=== PATIENT | male | born 1980 | race Hispanic/Latino ===

== ENCOUNTER 2018-05-03 10:56 | Emergency (ER) | payer BC ==
--- NOTE | 2018-05-03 11:17 | ER ---
Nurse's Notes [facility] Name: Alexander Box Age: 37 yrs Sex: Male : 1980 Arrival Date: 05/03/2018 Time: 10:59 Bed 19 Private MD: Diagnosis: Otitis media, unspecified, right ear;Acute upper respiratory infection, unspecified Presentation: 05/03 11:00 Presenting complaint: Productive cough, pain with cough, and headache x 3 days. hb Transition of care: patient was not received from another setting of care. Onset of symptoms was May 01, 2018. Risk Assessment: Do you want to hurt yourself or someone else? Patient reports no desire to harm self or others. Care prior to arrival: None. 11:00 Method Of Arrival: Ambulatory hb 11:00 Acuity: AMNA 4 hb 11:07 Initial Sepsis Screen: Does the patient meet any 2 criteria? No. Patient's initial tw2 sepsis screen is negative. Does the patient have a suspected source of infection? No. Patient's initial sepsis screen is negative. Historical: - Allergies: 11:02 No Known Allergies; hb - Home Meds: 11:02 None [Active]; hb - PMHx: 11:02 None; hb - PSHx: 11:02 None; hb - Immunization history:: Adult Immunizations up to date. - Social history:: Smoking status: Patient uses tobacco products, smokes one-half pack cigarettes per day. - Ebola Screening: : No symptoms or risks identified at this time. Screenin:02 Abuse screen: Denies threats or abuse. Denies injuries from another. Nutritional hb screening: No deficits noted. Tuberculosis screening: No symptoms or risk factors identified. Fall Risk None identified. Assessment: 11:07 General: Appears in no apparent distress. Behavior is calm, cooperative, appropriate tw2 for age. Pain: Denies pain. Neuro: Level of Consciousness is awake, alert, obeys commands, Oriented to person, place, time, situation. Cardiovascular: Patient's skin is warm and dry. Respiratory: Reports cough that is Airway is patent Respiratory effort is even, unlabored, Respiratory pattern is regular, symmetrical, Breath sounds are clear bilaterally. GI: No signs and/or symptoms were reported involving the gastrointestinal system. : No signs and/or symptoms were reported regarding the genitourinary system. EENT: Reports nasal congestion nasal discharge. Derm: No signs and/or symptoms reported regarding the dermatologic system. Musculoskeletal: Range of motion: intact in all extremities. 11:21 Reassessment: Patient appears in no apparent distress at this time. No changes from tw2 previously documented assessment. Patient and/or family updated on plan of care and expected duration. Pain level reassessed. Patient is alert, oriented x 3, equal unlabored respirations, skin warm/dry/pink. Vital Signs: 11:01 BP 147 / 98; Pulse 67; Resp 16; Temp 98.2; Pulse Ox 100% on R/A; Pain 0/10; hb ED Course: 10:59 Patient arrived in ED. as 11:01 Triage completed. hb 11:02 Arm band placed on left wrist. hb 11:02 Bed in low position. Call light in reach. Pulse ox on. NIBP on. tw2 11:03 Damaso Schneider PA is PHCP. cp 11:03 Devin Iraheta MD is Attending Physician. cp 11:07 Zoila Roa, RN is Primary Nurse. tw2 11:20 No provider procedures requiring assistance completed. Patient did not have IV access tw2 during this emergency room visit. Administered Medications: No medications were administered Outcome: 11:16 Discharge ordered by MD. cp 11:20 Discharged to home ambulatory. tw2 11:20 Condition: stable 11:20 Discharge instructions given to patient, Instructed on discharge instructions, follow up and referral plans. medication usage, Demonstrated understanding of instructions, follow-up care, medications, Prescriptions given X 3. 11:21 Patient left the ED. tw2 Signatures: Jessi Gan as Damaso Schneider PA PA cp Baxter, Heather, RN RN Zoila Roa RN RN tw2
--- NOTE | 2018-05-03 11:17 | EDPHYS ---
Physician Documentation [facility] Name: Alexander Box Age: 37 yrs Sex: Male : 1980 Arrival Date: 05/03/2018 Time: 10:59 Bed 19 Private MD: ED Physician Devin Iraheta HPI: 05/03 11:12 This 37 yrs old Male presents to ER via Ambulatory with complaints of cp Congestion. 11:12 The patient or guardian reports cough, that is intermittent. Associated signs and cp symptoms: Pertinent positives: earache, sore throat, nasal and chest congestion. 11:12 Onset: The symptoms/episode began/occurred 3 day(s) ago. Severity of symptoms: in the cp emergency department the symptoms are unchanged despite home interventions. Historical: - Allergies: 11:02 No Known Allergies; hb - Home Meds: 11:02 None [Active]; hb - PMHx: 11:02 None; hb - PSHx: 11:02 None; hb - Immunization history:: Adult Immunizations up to date. - Social history:: Smoking status: Patient uses tobacco products, smokes one-half pack cigarettes per day. - Ebola Screening: : No symptoms or risks identified at this time. ROS: 11:13 Eyes: Negative for injury, pain, redness, and discharge. cp 11:13 Constitutional: Negative for body aches, fever, poor PO intake. 11:13 ENT: Positive for ear pain, sore throat, Negative for drainage from ear(s). 11:13 Neck: Negative for pain with movement, pain at rest, stiffness. 11:13 Respiratory: Positive for cough, "sounds productive", Negative for wheezing. 11:13 Abdomen/GI: Negative for vomiting, diarrhea, constipation. 11:13 Neuro: Positive for headache, Negative for altered mental status, weakness. 11:13 All other systems are negative. Exam: 11:14 Head/Face: Normocephalic, atraumatic. cp 11:14 Constitutional: The patient appears in no acute distress, alert, awake, non-toxic, well developed, well nourished, obese. 11:14 Eyes: Periorbital structures: appear normal, Conjunctiva: normal, no exudate, no injection, Lids and lashes: appear normal, bilaterally. 11:14 ENT: External ear(s): are unremarkable, Ear canal(s): are normal, clear, TM's: bulging, on the right, erythema, that is moderate, bilaterally, Nose: is normal, Mouth: Lips: moist, Oral mucosa: pink and intact, moist, Posterior pharynx: Airway: no evidence of obstruction, patent, Tonsils: no enlargement, no exudate, erythema, that is mild, exudate, is not appreciated. 11:14 Neck: ROM/movement: is normal, is supple, without pain, no range of motions limitations, no meningismus, no nuchal rigidity. 11:14 Chest/axilla: Inspection: normal, Palpation: is normal, no crepitus, no tenderness. 11:14 Cardiovascular: Rate: normal, Rhythm: regular. 11:14 Respiratory: the patient does not display signs of respiratory distress, Respirations: normal, no use of accessory muscles, no retractions, no splinting, no tachypnea, labored breathing, is not present, Breath sounds: decreased breath sounds, are not appreciated, stridor, is not appreciated, + upper airway congestion. wheezing: is not appreciated. 11:14 Abdomen/GI: Inspection: abdomen appears normal. cp Vital Signs: 11:01 BP 147 / 98; Pulse 67; Resp 16; Temp 98.2; Pulse Ox 100% on R/A; Pain 0/10; hb MDM: 11:03 Patient medically screened. cp 11:10 Differential diagnosis: bronchitis, flu, URI. cp 11:15 Data reviewed: vital signs, nurses notes, and as a result, I will discharge patient. cp 11:15 Counseling: I had a detailed discussion with the patient and/or guardian regarding: the cp historical points, exam findings, and any diagnostic results supporting the discharge/admit diagnosis, to return to the emergency department if symptoms worsen or persist or if there are any questions or concerns that arise at home. Administered Medications: No medications were administered Disposition: 14:47 Co-signature as Attending Physician, Devin Iraheta MD. rn Disposition: 05/03/18 11:16 Discharged to Home. Impression: Otitis media, unspecified, right ear, Acute upper respiratory infection, unspecified. - Condition is Stable. - Discharge Instructions: Otitis Media, Adult, Upper Respiratory Infection, Adult, Cool Mist Vaporizer. - Prescriptions for Amoxicillin 875 mg Oral Tablet - take 1 tablet by ORAL route every 12 hours for 10 days; 20 tablet. Ibuprofen 800 mg Oral Tablet - take 1 tablet by ORAL route every 8 hours As needed take with food; 30 tablet. Tessalon Perles 100 mg Oral Capsule - take 2 capsule by ORAL route every 8 hours As needed; 30 capsule. - Medication Reconciliation Form, Thank You Letter, Antibiotic Education, Prescription Opioid Use, Work release form form. - Follow up: Private Physician; When: 2 - 3 days; Reason: Worsening of condition. - Problem is new. - Symptoms are unchanged. Signatures: Devin Iraheta MD MD rn Damaso Schneider PA PA cp Christine Maldonado RN RN Zoila Roa RN RN tw2 Corrections: (The following items were deleted from the chart) 11:21 11:16 05/03/2018 11:16 Discharged to Home. Impression: Otitis media, unspecified, right tw2 ear; Acute upper respiratory infection, unspecified. Condition is Stable. Forms are Work release form, Medication Reconciliation Form, Thank You Letter, Antibiotic Education, Prescription Opioid Use. Follow up: Private Physician; When: 2 - 3 days; Reason: Worsening of condition. Problem is new. Symptoms are unchanged. cp
== END 2018-05-03 11:21 | disposition home or self-care (01) ==
LOC: ER 10:56
DX: H66.91 Otitis media, unspecified, right ear (principal); J06.9 Acute upper respiratory infection, unspecified; F17.210 Nicotine dependence, cigarettes, uncomplicated
CPT/HCPCS: 99283

== ENCOUNTER 2018-12-29 06:51 | Day surgery (SDC) | payer BC ==
--- NOTE | 2018-12-27 11:26 | RAD REPORT ---
EXAM DESCRIPTION: RAD - Chest Pa And Lat (2 Views) - 12/27/2018 11:05 am CLINICAL HISTORY: preop, pending cholecystectomy COMPARISON: April 2008 TECHNIQUE: PA and lateral views of the chest were obtained. FINDINGS: The lungs are clear. Heart size is normal and central vasculature is within normal limit s. No pleural effusion or pneumothorax seen. No acute bony finding noted. No aortic abnormality. IMPRESSION: No acute cardiopulmonary process.
--- NOTE | 2018-12-27 12:19 | EKG ---
Test Date: 2018-12-27 Test Time: 11:52:44 Documentum Consultant: STELLA MEASUREMENT RESULTS: Intervals: Rate: 70 ME: 148 QRSD: 70 QT: 398 QTc: 429 Orcas: P: 36 ME: 148 QRS: -7 T: 20 INTERPRETIVE STATEMENTS: Normal sinus rhythm Nonspecific T wave abnormality Abnormal ECG Compared to ECG 04/30/2008 13:41:32 No significant changes Electronically Signed On 12-27-18 12:19:05 HOME CARE ADMINISTRATOR by Ricki Louis
[2018-12-27 13:28] LABS: Absolute Lymphocytes (CBC) 2.7 K/uL (0.7-4.9); Hematocrit 47.5 % (39.6-49.0); Lymphocytes % 36.4 % (15.3-44.8); MPV 8.5 fL (7.6-11.3); RBC Red Blood Cell Count 5.75 M/uL (4.33-5.43)
[2018-12-29] MEDS ORDERED: PROPOFOL 200 MG/20 ML VIAL IV ONE ×2 (06:57→08:07)
[2018-12-29] MEDS ORDERED: ROCURONIUM 50 MG/5 ML VIAL IV ONE (06:58)
[2018-12-29] MEDS ORDERED: LIDOCAINE 2% MPF 5 ML VIAL ONE (06:58)
[2018-12-29] MEDS ORDERED: ONDANSETRON 4 MG/2 ML VIAL ONE (06:58)
[2018-12-29] MEDS ORDERED: FENTANYL CITR 250 MCG/5 ML ONE (06:59)
[2018-12-29] MEDS ORDERED: NEOSTIGMINE 1 MG/ML -5 ML ONE (06:59)
[2018-12-29] MEDS ORDERED: MIDAZOLAM HCL 2 MG/2 ML INJ ONE (06:59)
[2018-12-29] MEDS ORDERED: GLYCOPYRROLATE 0.2 MG/ML SYR ONE (07:00)
[2018-12-29] MEDS ORDERED: SUCCINYLCHOLINE 20 MG/ML (10 ML) IV ONE (07:14)
[2018-12-29] MEDS ORDERED: EPHEDRINE SULF 50 MG/ML VIAL ONE (08:35)
[2018-12-29] MEDS ORDERED: Mastisol Adhesive Liq ONE (08:58)
[2018-12-29] MEDS ORDERED: Ringers Lactate 1,000 ML IV ONE (09:06)
[2018-12-29] MEDS ORDERED: HYDROMORPHONE HCL 1 MG/ML INJ ONE (09:40)
[2018-12-29 10:02] VITALS: TEMP 97.4
[2018-12-29 10:59] VITALS: BP 128/72; O2SAT 96
--- NOTE | 2018-12-29 11:42 | OP ---
Date of Procedure: 12/29/2018 Surgeon: Isaias Malloy MD Preoperative Diagnoses: Chronic cholecystitis and biliary dyskinesia Postoperative Diagnoses: Chronic cholecystitis and biliary dyskinesia with adhesions. Procedure Performed: Laparoscopic cholecystectomy, lysis of adhesions. Estimated Blood Loss: Minimal. Specimen: Gallbladder. Findings: As above. Anesthesia: General. Complications: None. Disposition: Patient tolerated the procedure in stable condition, taken to Recovery in good general condition. Procedure In Detail: Patient was brought to the OR and placed in supine position. General anesthesi a was begun. Patient was prepped and draped in usual sterile fashion. Marcaine 0.5% was infiltrated locally. A 15 blade was used to make a 1 cm supraumbilical midline incision. Subcutaneous tissue d ivided. The fascia was identified and divided. A #1 Vicryl, stay suture was placed. Peritoneal cav ity was entered with sharp and blunt dissection. 12-mm trocar placed into the peritoneal cavity unde r direct vision. Pneumoperitoneum was established. Then, three 5 mm trocars placed, 1 in the epigas trium just to the right of midline and 2 in the right subcostal region. Laparoscopy revealed extensi ve adhesions, omental adhesions to the gallbladder, fundus and body, which were taken and infundibulu m was taken down with sharp and blunt dissection. Bleeding controlled with cautery. Approximately 1 5 minute time was required for dissection of the adhesions and then fundus was retracted superiorly. Infundibulum was identified and retracted inferolaterally. Cystic duct and cystic artery were clear ly identified with blunt dissection. Clips placed. Both structures divided. Cautery was used to re move the gallbladder from the liver bed. Bleeding on the liver bed was controlled with cautery. The gallbladder was retrieved through the umbilicus via an EndoCatch bag. Right upper quadrant examined , no evidence of bleeding or bowel injury, or bile leakage appreciated. Subsequently, all trocars we re removed under direct vision. Stay sutures were tied to each other to reapproximate the fascial de fect. Subcutaneous wounds irrigated. Bleeding controlled with cautery. A 3-0 chromic used to appro ximate the subcutaneous tissue and close the skin. Sterile dressing was applied. The patient was aw akened and taken to Recovery in good general condition. Discharge Note: Patient will go to day surgery and home when stable. Disposition: Home. Condition: Stable. Discharge Instructions: Resume home medications and diet. Activity as tolerated. No heavy lifting. Remove outer dressing in 2 days. Shower. Keep wound clean and dry. Keep Steri-Strips on at all t imes. Incentive spirometry was ordered. Tylenol No. 3 one tablet p.o. q.4 p.r.n. pain. Follow up i n my office in 1 week. Call for appointment. YVONNE/FRANK Voice ID: [id number] Report ID: [id number]
== END 2018-12-29 11:20 | disposition home or self-care (01) ==
LOC: PRE 06:51
PROVIDERS: ATTEND Surgery
PROC: 0DNU4ZZ Release Omentum, Percutaneous Endoscopic Approach (ICD-10-PCS; 2018-12-29)
PROC: 0FT44ZZ Resection of Gallbladder, Percutaneous Endoscopic Approach (ICD-10-PCS; principal; 2018-12-29 08:15)
DX: K81.1 Chronic cholecystitis (principal); K82.8 Other specified diseases of gallbladder; K66.0 Peritoneal adhesions (postprocedural) (postinfection); E66.01 Morbid (severe) obesity due to excess calories; Z68.42 Body mass index [BMI] 45.0-49.9, adult; F17.200 Nicotine dependence, unspecified, uncomplicated
CPT/HCPCS: 93005; 85025; 80048; 36415; 71046; 47562; 49329; J2704 ×2; J0330; J2250; J3010; J1170; J2710; J7120; J2405

== ENCOUNTER 2024-06-27 14:02 | Emergency (ER) | payer BC, SELFPAY ==
--- OUTSIDE RECORDS SUMMARY | 2024-06-27 14:07 | XMS REPORT | Continuity of Care Document ---
Author Name Unknown Address [address] [facility] [place] [address] [facility] Address [address] [facility] [place] [address] Care Team Providers Care Low Voltage Electrician Name Role Phone ELVIN LEVIN Primary Care Physician Unavailab ELIU De Oliveira Attending Clinician Unavailable ELIU LEMUS Attending Clinician Unavailable PADMAJA RUTHERFORD Attending Clinician Un available Clary Miles DO Attending Clinician [phone] CLARY MILES Attending Clinician Unavailab Clary King DO Attending Clinician [phone] IHSAN MATA Attending Clinician Unavailable Gavin Choudhury Attending Clinician [phone] Ihsan Mata DO Attending Clinician [phone] Hiwot Montiel MD Attending Clinician [phone] YOANDY BRENNAN M.D. Attending Clinician Unavaila ELIU Howard Admitting Clinician Unavailable IHSAN MATA Admitting Clinician Unavailable Ihsan Mata DO Admitting Clinician [phone] Problems Condition Name Condition Details Condition Category Status Onset Date Resolution Date Last Treatment Date Treating Clinician Comments Source Epigastric pain Epigastric pain Disease Active 10-02 00:00: 00 [facility] Chronic gastrointe stinal bleeding Chronic gastrointe stinal bleeding Disease Active 10-01 00:00: 00 [facility] Obesity (BMI 30-39.9) Obesity (BMI 30-39.9) Disease Active 10-01 00:00: 00 [facility] Anemia, unspecifie d type Anemia, unspecifie d type Disease Active 10-01 00:00: 00 Overview: Formattin g of this note might be different from the original. Added automatic ally from request for surgery [id number] [facility] Obesity Obesity Disease Active 05-22 00:00: 00 [facility] Esophageal reflux Esophageal reflux Disease Active 05-22 00:00: 00 [facility] Hypothyroi dism Hypothyroi dism Disease Active 05-22 00:00: 00 [facility] Abdominal pain, epigastric Abdominal pain, epigastric Disease Active 05-22 00:00: 00 [facility] Diarrhea Diarrhea Disease Active 05-22 00:00: 00 [facility] Elevated liver enzymes Elevated liver enzymes Disease Active 05-22 00:00: 00 [facility] Rectal bleeding Rectal bleeding Disease Active 05-22 00:00: 00 [facility] Neck pain [facility] pain Problem [facility] Injury to ligament of cervical spine Injury to ligament of cervical spine Problem Active [facility] Allergies, Adverse Reactions, Alerts Allergy Name Allergy Type Status Severity Reaction(s) Onset Date Inactive Date Treating Clinician Comments Source NO KNOWN ALLERGIE S Drug Class Active [facility] Social History Social Habit Start Date Stop Date Quantity Comments Source History of tobacco use Cigarette Smoker [facility] intake 2024-04-10 00:00:00 2024-04-10 00:00:00 Ex-drinker (finding) [facility] Exposure to SARS-CoV-2 (event) 2021-10-06 00:00:00 2021-10-16 13:55:00 Not sure [facility] Alcohol intake 2021-10-16 00:00:00 2021-10-16 00:00:00 Ex-drinker (finding) [facility] History of Social function 2021-10-03 00:00:00 2021-10-03 00:00:00 [facility] Cigarettes smoked current (pack per day) - Reported 2021-10-01 00:00:00 2021-10-01 00:00:00 [facility] Cigarette pack-years 2021-10-01 00:00:00 2021-10-01 00:00:00 [facility] Sex assigned at 1980 00:00:00 1980 00:00:00 [facility] Smoking Status Start Date Stop Date Source Smokes tobacco daily 2021-10-01 00:00:00 [facility] Medications Ordered Medication Name Filled Medication Name Start Date Stop Date Current Medication? Ordering Clinician Indication Dosage Frequency Signature (SIG) Comments Components Source Lidocaine (LIDOCARE) 4 % patch 1 Patch 04-10 11:00: 00 04-10 22:59 :00 Yes 1{patch } 1 Patch, Topical, Administer over 12 Hours, ONCE, 1 dose, On Wed04/10/24 at 0500, Routine [facility] fentanyl PF (SUBLIMAZE (PF)) injection 50 mcg 04-10 10:15: 00 04-10 10:41 :00 No 50ug 50 mcg, Intramuscu lar, ONCE, 1 dose, On Wed04/10/24 at 0415, Routine [facility] diazePAM (VALIUM) tablet 5 mg 04-10 10:15: 00 04-10 10:42 :00 No 5mg 5 mg, Oral, ONCE, 1 dose, On Wed04/10/24 at 0415, KO [facility] ibuprofen (IBU) tablet 600 mg 04-10 10:15: 00 04-10 10:41 :00 No 600mg 600 mg, Oral, ONCE, 1 dose, On Wed04/10/24 at 0415, KO [facility] dexamethaso ne sod phos PF injection 10 mg 04-10 10:15: 00 04-10 10:41 :00 No 10mg 10 mg, Oral, ONCE, 1 dose, On Wed04/10/24 at 0415, 1 mL [facility] methocarbam oL 750 mg tablet 04-10 00:00: 00 Yes [id number] 750mg Take 1 tablet by mouth every 6 (six) hours as needed for Pain (scale 1-3). [facility] omeprazole (PRILOSEC) 20 mg capsule 10-07 14:37: 03 Yes 40mg Take 40 mg by mouth daily. [facility] docusate (COLACE) 100 mg capsule 10-07 14:37: 03 Yes 100mg Take 100 mg by mouth 2 (two) times daily. [facility] iron sucrose (VENOFER) 300 mg in NaCl 0.9% (NS) 250 mL infusion 10-03 23:00: 00 10-04 01:06 :33 No 300mg 300 mg, IV Infusion, ONCE, Administer over 2.5 Hours, On Wed10/03/21 at 1800, For 1 dose [facility] dicyclomine (BENTYL) capsule 10 mg 10-03 17:00: 00 10-04 06:15 :53 No 10mg 10 mg, Oral, QID, First dose on Wed10/03/21 at 1200, Until Discontinu ed, Routine [facility] pantoprazol e (PROTONIX) injection 40 mg 10-03 01:00: 00 10-04 06:15 :53 No 40mg 40 mg, Slow IV Push, Q12H, First dose on Beata 10/02/21 at 2000, Until Discontinu ed [facility] peg-electro lyte soln (GOLYTELY) 236-22.74-6 .74 -5.86 gram solution 4,000 mL 10-02 21:47: 47 10-04 06:15 :53 No 4000mL 4,000 mL, Oral, PRN - SEE INSTRUCTIO NS, Starting on Wed10/02/21 at 1647, Until 10/04/21 at 0115, Routine, Bowel Prep, colonoscop y [facility] ondansetron (ZOFRAN (PF)) injection 4 mg 10-02 21:47: 47 10-04 06:15 :53 No 4mg 4 mg, Slow IV Push, Q6HPRN, Starting on Wed10/02/21 at 1647, Until 10/04/21 at 0115, Routine, Nausea and Vomiting (N/V) [facility] bisacodyL (DULCOLAX) tablet 10 mg 10-02 21:47: 47 10-03 07:50 :00 No 10mg 10 mg, Oral, PRE-PROCED URE ONCE, 1 dose, Starting on Wed10/02/21 at 1647, Until Discontinu ed, Routine, Bowel Prep, Colonoscop y [facility] iron sucrose (VENOFER) 300 mg in NaCl 0.9% (NS) 250 mL infusion 10-02 19:00: 00 10-02 21:27 :00 No 300mg 300 mg, IV Infusion, ONCE, Administer over 2.5 Hours, On Wed10/02/21 at 1400, For 1 dose [facility] simethicone (GAS RELIEF (SIMETHICON E)) chewable tablet 80 mg 10-02 14:15: 00 10-03 19:27 :11 No 80mg 80 mg, Oral, PC+HS, First dose on Wed10/02/21 at 0915, Until Discontinu ed, Routine [facility] HYDROcodone -acetaminop hen (NORCO) 10-325 mg tablet 1 tablet 10-02 13:59: 50 10-04 06:15 :53 No 1{tbl} 1 tablet, Oral, Q6HPRN, Starting on 10/02/22 at 0859, Until 10/04/21 at 0115, Routine, Pain (scale 7-10) [facility] acetaminoph en (TYLENOL) tablet 650 mg 10-02 03:01: 00 10-04 06:15 :53 No 650mg 650 mg, Oral, Q6HPRN, Starting on Wed10/01/21 at 2201, Until 10/04/21 at 0115, Routine, Pain (scale 1-3) [facility] pantoprazol e (PROTONIX) 80 mg in NaCl 0.9% (NS) 500 mL infusion 10-02 02:30: 00 10-02 22:31 :38 No 8mg/h 8 mg/hr (50 mL/hr), IV Infusion, CONTINUOUS , Starting on Wed10/01/21 at 2130 [facility] iopamidol (ISOVUE 370-500 mL) injection 100 mL 10-02 02:15: 00 10-02 02:15 :00 No [id number] 100mL 100 mL, Intravenou s, ONCE, 1 dose, On Wed10/01/21 at 2115, Routine [facility] NaCl 0.9% (NS) bolus infusion 1,000 mL 10-02 00:45: 00 10-02 01:46 :00 No 1000mL at 999 mL/hr, 1,000 mL, IV Infusion, ONCE, 1 dose, On Wed10/01/21 at 1945, KO [facility] maalox:diph enhydrAMINE :lidocaine 2 % viscous 1:1:1 (FIRST-MOUT HWASH BLM) oral suspension 15 mL 10-01 23:45: 00 10-02 00:24 :00 No 15mL 15 mL, Oral, ONCE, 1 dose, On Wed10/01/21 at 1845, Routine [facility] No known medications 10-01 22:52: 11 No No known medication s [facility] HYDROcodone -Acetaminop hen 5-325 MG Oral Tablet HYDROcodone -Acetaminop hen 5-325 MG Oral Tablet 08-29 00:00: 00 Yes YOANDY BRENNAN M.D. 1 TAKE 1 TABLET EVERY 6 HOURS NEEDED FOR PAIN. [facility] HYDROcodone -Acetaminop hen 5-325 MG Oral Tablet HYDROcodone -Acetaminop hen 5-325 MG Oral Tablet 08-22 00:00: 00 Yes YOANDY BRENNAN M.D. 1 TAKE 1 TABLET EVERY 6 HOURS NEEDED FOR PAIN. [facility] Vital Signs Vital Name Observation Time Observation Value Comments S shabbir Systolic blood pressure 2024-04-10 11:04:32 133 mm[Hg] [facility] Diastolic blood pressure 2024-04-10 11:04:32 76 mm[Hg] [facility] Heart rate 2024-04-10 11:04:32 64 /min [facility] Body temperature 2024-04-10 11:04:32 36.61 Esme [facility] Respiratory rate 2024-04-10 11:04:32 15 /min [facility] Oxygen saturation in Arterial blood by Pulse oximetry 2024-04-10 11:04:32 98 /min [facility] Body height 2024-04-10 09:57:00 182.9 cm [facility] Body weight 2024-04-10 09:57:00 108.863 kg [facility] BMI 2024-04-10 09:57:00 32.55 kg/m2 [facility] Systolic blood pressure 2021-10-16 21:00:00 134 mm[Hg] [facility] Diastolic blood pressure 2021-10-16 21:00:00 73 mm[Hg] [facility] Heart rate 2021-10-16 21:00:00 66 /min [facility] Respiratory rate 2021-10-16 21:00:00 20 /min [facility] Oxygen saturation in Arterial blood by Pulse oximetry 2021-10-16 21:00:00 97 /min [facility] Body temperature 2021-10-16 18:51:00 37.5 Esme [facility] Body height 2021-10-16 18:51:00 182.9 cm [facility] Body weight 2021-10-16 18:51:00 127.914 kg [facility] BMI 2021-10-16 18:51:00 38.25 kg/m2 [facility] Systolic blood pressure 2021-10-03 21:32:00 151 mm[Hg] [facility] Diastolic blood pressure 2021-10-03 21:32:00 76 mm[Hg] [facility] Heart rate 2021-10-03 21:32:00 58 /min [facility] Body temperature 2021-10-03 21:32:00 36.78 Esme [facility] Respiratory rate 2021-10-03 21:32:00 18 /min [facility] Oxygen saturation in Arterial blood by Pulse oximetry 2021-10-03 21:32:00 99 /min [facility] Body height 2021-10-02 04:20:00 182.9 cm [facility] Body weight 2021-10-02 04:20:00 127.914 kg [facility] BMI 2021-10-02 04:20:00 38.25 kg/m2 [facility] Systolic blood pressure 2021-10-03 16:59:00 142 mm[Hg] [facility] Diastolic blood pressure 2021-10-03 16:59:00 79 mm[Hg] [facility] Heart rate 2021-10-03 16:59:00 63 /min [facility] Respiratory rate 2021-10-03 16:59:00 19 /min [facility] Oxygen saturation in Arterial blood by Pulse oximetry 2021-10-03 16:59:00 98 /min [facility] Body temperature 2021-10-03 16:25:00 36.56 Esme [facility] Body height 2021-10-02 04:20:00 182.9 cm [facility] Body weight 2021-10-02 04:20:00 127.914 kg [facility] BMI 2021-10-02 04:20:00 38.25 kg/m2 [facility] Procedures Procedure Date / Time Performed Performing Clinician Source XR LUMBAR SPINE 3 2024-04-10 10:37:14 Clary Miles [facility] XR SPINE THORACIC 2 2024-04-10 10:37:14 Clary Miles [facility] XR CERVICAL SPINE 3 2024-04-10 10:37:14 Clary Miles [facility] HB ABO GROUPING 2021-10-16 20:00:00 Clary Miles [facility] COMP. METABOLIC PANEL ([id number]) 2021-10-16 19:57:00 Clary Miles [facility] CBC WITH DIFF 2021-10-16 19:57:00 Clary Miles [facility] COVID-19 (ID NOW RAPID TESTING) 19:57:00 Clary Miles [facility] NOTICE OF PRIVACY PRACTICES 2021-10-16 18:33:28 Doctor Unassigned, [employer] [facility] CONSENT/REFUSAL FOR DIAGNOSI S AND TREATMENT 2021-10-16 18:33:00 Doctor Unassigned, [facility] [facility] COLONOSCOPY (ENDO) 2021-10-03 19:18:05 Elvin Levin [facility] COLONOSCOPY (ENDO) 2021-10-03 19:18:05 Elvin Levin [facility] EGD (ENDO) 2021-10-03 19:13:30 Elvin Levin [facility] EGD (ENDO) 2021-10-03 19:13:30 Elvin Levin [facility] ESOPHAGOGASTRODUODENOSCOPY 2021-10-03 19:11:00 Dinesh Hiwot [facility] COLONOSCOPY 2021-10-03 19:11:00 Dinesh Hiwot [facility] CBC WITHOUT DIFF 2021-10-03 09:37:00 Humberto Oropeza [facility] EXTRA TUBE LT. GREEN 2021-10-03 09:37:00 Ihsan Mata [facility] CBC WITHOUT DIFF 2021-10-03 09:37:00 Humberto Oropeza [facility] EXTRA TUBE LT. GREEN 2021-10-03 09:37:00 Ihsan Mata [facility] CBC WITH DIFF 2021-10-03 02:15:00 [facility] CBC WITH DIFF 2021-10-03 02:15:00 Nash Schultz [facility] CBC WITH DIFF 2021-10-02 18:56:00 [facility] CBC WITH DIFF 2021-10-02 18:56:00 Nash Schultz [facility] PREPARE PACKED RBC 2021-10-02 14:12[facility] 2021-10-02 14:12:57 Humberto Oropeza [facility] LACTATE DEHYDROGENASE 2021-10-02 13:33:00 Humberto Oropeza [facility] LACTATE DEHYDROGENASE 2021-10-02 13:33:00 Humberto Oropeza [facility] PHOSPHORUS 2021-10-02 11:13:00 [facility] MAGNESIUM 2021-10-02 11:13:00 [facility] BASIC METABOLIC PANEL (NA, K , CL, CO2, GLUCOSE, BUN, CREATININE, CA) 2021-10-02 11:13:00 [facility] DIFF CONSULT INTERPRETATION 2021-10-02 11:13:00 Humberto Oropeza [facility] CBC WITH DIFF 2021-10-02 11:13:00 [facility] RETICULOCYTES AUTOMATED 2021-10-02 11:13:00 Humberto Oropeza [facility] PHOSPHORUS 2021-10-02 11:13:00 Nash Schultz [facility] MAGNESIUM 2021-10-02 11:13:00 [facility] BASIC METABOLIC PANEL (NA, K , CL, CO2, GLUCOSE, BUN, CREATININE, CA) 2021-10-02 11:13:00 [facility] DIFF CONSULT INTERPRETATION 2021-10-02 11:13:00 Humberto Oropeza [facility] CBC WITH DIFF 2021-10-02 11:13:00 [facility] RETICULOCYTES AUTOMATED 2021-10-02 11:13:00 Humberto Oropeza [facility] PREPARE PACKED RBC 2021-10-02 07:19:48 Gavin Espinal [facility] PREPARE PACKED RBC 2021-10-02 07:19:48 Gavin Espinal [facility] ABORH CONFIRMATION (LAB ONLY) 2021-10-02 03:10:00 Gavin Espinal [facility] ABORH CONFIRMATION (LAB ONLY) 2021-10-02 03:10:00 Gavin Espinal [facility] PROTHROMBIN TIME / INR 2021-10-02 01:39:00 Gavin Espinal [facility] PROTHROMBIN TIME / INR 2021-10-02 01:39:00 Gavin Espinal [facility] HB ABO GROUPING 2021-10-02 01:30:00 Gavin Espinal [facility] HB ABO GROUPING 2021-10-02 01:30:00 Gavin Espinal [facility] URINALYSIS 2021-10-02 01:09:00 Gavin Espinal [facility] EXTRA TUBE URINE CULTURE 2021-10-02 01:09:00 Gavin Espinal [facility] URINALYSIS 2021-10-02 01:09:00 Gavin Espinal [facility] EXTRA TUBE URINE CULTURE 2021-10-02 01:09:00 Gavin Espinal [facility] CT ABDOMEN PELVIS W CONTRAST 2021-10-02 01:02:00 Gavin Espinal [facility] CT ABDOMEN PELVIS W CONTRAST 2021-10-02 01:02:00 Gavin Espinal [facility] COVID-19 (ID NOW RAPID TESTING) 00:00:00 Gavin Espinal [facility] LAB ONLY COVID INTERPRETATION 2021-10-02 00:00:00 Gavin Espinal [facility] LIPASE 2021-10-02 00:00:00 Gavin Espinal [facility] FERRITIN SERUM 2021-10-02 00:00:00 Nash Schultz [facility] HAPTOGLOBIN, SERUM 2021-10-02 00:00:00 Humberto Oropeza [facility] TROPONIN I 2021-10-02 00:00:00 Gavin Espinal [facility] COMP. METABOLIC PANEL ([id number]) 2021-10-02 00:00:00 Gavin Espinal [facility] IRON PANEL 2021-10-02 00:00:00 Nash Schultz [facility] CBC WITH DIFF 2021-10-02 00:00:00 Gavin Espinal [facility] COVID-19 (ID NOW RAPID TESTING) 00:00:00 Gavin Espinal [facility] LAB ONLY COVID INTERPRETATION 2021-10-02 00:00:00 Gavin Espinal [facility] LIPASE 2021-10-02 00:00:00 Gavin Espinal [facility] FERRITIN SERUM 2021-10-02 00:00:00 Nash Schultz [facility] HAPTOGLOBIN, SERUM 2021-10-02 00:00:00 Humberto Oropeza [facility] TROPONIN I 2021-10-02 00:00:00 Gavin Espinal [facility] COMP. METABOLIC PANEL ([id number]) 2021-10-02 00:00:00 Gavin Espinal [facility] IRON PANEL 2021-10-02 00:00:00 Nash Schultz [facility] CBC WITH DIFF 2021-10-02 00:00:00 Gavin Espinal [facility] HB ECG ROUTINE & RHYTHM STRIP 2021-10-01 23:50:08 Gavin Espinal [facility] CONSENT/REFUSAL FOR DIAGNOSI S AND TREATMENT 2021-10-01 23:11:54 Doctor Unassigned, [facility] CONSENT/REFUSAL FOR DIAGNOSI S AND TREATMENT 2021-10-01 23:11:54 Doctor Unassigned, [facility] Post Op Promis 29 Survey 2019-09-15 00:00:00 [facility] Start Date/Time End Date/Time Encounter Type Admission Type Attending Clinicians Care Facility Care Department Encounter ID Source 2024-05-02:51:00 2024-05-03 00:31:00 Emergency X ELIU LEMUS WAKILI [facility] E[facility] [id number] [facility] 2024-04-26 01:47:00 2024-04-26 01:49:00 Emergency Emergency [facility] General Medicine [id number] 2024-04-10 04:04:00 2024-04-10 05:30:00 Emergency Clary Miles [facility] [id number] [facility] 2021-10-16 13:56:00 2021-10-16 16:40:00 Emergency X CLARY MILES [facility] E[facility] [id number] [facility] 2021-10-16 13:56:00 2021-10-16 16:40:00 Emergency Clary Miles [facility] [id number] [facility] 2021-10-01 18:12:00 2021-10-03 21:20:00 Inpatient X IHSAN MATA [facility] ALANNA [id number] [facility] 2021-10-01 18:12:00 2021-10-03 21:20:00 Hospital Encounter Gavin Espinal [facility] [id number] [facility] 2021-10-03 11:43:00 2021-10-03 12:29:00 Surgery Hiwot Montiel [facility] [id number] [facility] 2019-08-30 14:00:00 2019-08-30 14:00:00 [place]; YOANDY BRENNAN M.D. PRASARN, MARK, M.D. [facility] [id number] [facility] Results Test Description Test Time Test Comments Results Resul t Comments Source XR Lumbar spine 3 vw 2024-04-10 11:09:23 CLINICAL HISTORY: Back pain ORDERING PHYSICIAN: CLARY MILES TECHNIQUE: 3 views lumbar spine. COMPARISON: None. FINDINGS: No fracture or dislocation. ?Surrounding soft tissues are unremarkable. Joint spaces are preserved. [facility] XR Thoracic spine 2 2024-04-10 11:08:49 ORDERING PHYSICIAN: CLARY MILES CLINICAL HISTORY: Back pain, injury TECHNIQUE: 2 views thoracic spine obtained. COMPARISON:None. FINDINGS: No fracture or dislocation. ?Surrounding soft tissues are unremarkable. [facility] XR Cervical spine 3 2024-04-10 11:08:07 CLINICAL HISTORY: Pain ORDERING PHYSICIAN: CLARY MILES TECHNIQUE: 3 views cervical spine. COMPARISON: None. FINDINGS: No fracture or dislocation. ?Surrounding soft tissues are unremarkable.Corie ent is status post anterior and posterior fusion of C5 and C6. Hardwareis well-positioned and in anatomic alignment. Degenerative disc disease isseen at C4/5, C5/6, C6/7. [facility] [id number] 20:48:46* Test Item Value Reference Range Interpretation Comme nts ABO & RH (test code = 20) B Positive Performed at [facility] Laboratory Services - [facility] Blood [address] [place] [address] Free: [phone] No. [id number] IAT (test code = 1185) Negative Performed at [facility] Laboratory Services - [facility] Blood [address] [place], [place] [id number] Free: [phone] No. [id number] [facility] ([id number])2021-10-16 20:21:46* Test Item Value Reference Range Interpretation Comme nts NA (test code = 9730121002) 141 mmol/L 135-145 K (test code = 2563626302) 3.9 mmol/L 3.5-5 CL (test code = 4339311748) 106 mmol/L 98-108 CO2 TOTAL (test code = 8184475717) 27 mmol/L 23-31 AGAP (test code = 0182913429) 2-16 BUN (test code = 1007877353) 10 mg/dL 7-23 GLUCOSE (test code = 6683118763) 104 mg/dL 70-110 CREATININE (test code = 2805615988) 0.84 mg/dL 0.6-1.25 TOTAL BILI (test code = 7190486054) 0.2 mg/dL 0.1-1.1 CALCIUM (test code = 1484202225) 9.0 mg/dL 8.6-10.6 T PROTEIN (test code = 5759731539) 7.0 g/dL 6.3-8.2 ALBUMIN (test code = 8111829980) 4.4 g/dL 3.5-5 ALK PHOS (test code = 3525639070) 91 U/L 34-122 ALTv (test code = 1742-6) 18 U/L 5-50 AST(SGOT) (test code = 3989287569) 28 U/L 13-40 eGFR (test code = 8186873663) mL/min/1.73m2 MARGARITA (test code = MARGARITA) Association of Glomerular Filtration Rate (GFR) and Staging of Kidney Disease* + + +- +| GFR (mL/min/1.73 m2) ?| With Kidney Damage ?| ?Without Kidney Damage+ ------+ ----+ ------+| ?>90 ?| ?Stage one ?| ? Normal ?+ -+ + -+| ?60-89 ?| ?Stage two ?| ? Decreased GFR ? + + +- +| ?30-59 ?| ?Stage three ?| ? Stage three ? + + +- +| ?15-29 ?| ?Stage four ? | ? Stage four ?+ -+ + -+| ?<15 (or dialysis) ? ?| ?Stage five ? | ? Stage five ?+ -+ + -+ *Each stage assumes the associated GFR level has been in effect for at least three months. ?Stages 1 to 5, with or without kidney disease, indicate chronic kidney disease. Notes: Determination of stages one and two (with eGFR >59mL/min/1.73 m2) requires estimation of kidney damage for at least three months as defined by structural or functional abnormalities of the kidney, manifested by either:Pathological abnormalities or Markers of kidney damage (including abnormalities in the composition of the blood or urine or abnormalities in imaging tests). [facility] [id number] 19:53:23* Test Item Value Reference Range Interpretation Comme nts WBC (test code = 6690-2) See_Comment [Automated dINKa [employer]] The system which generated this result transmitted reference range: 4.20 - 10.70 10*3/?L. The reference range was not used to interpret this result as normal/abnormal. RBC (test code = 789-8) See_Comment L [Automated [employer]] The system which generated this result transmitted reference range: 4.26 - 5.52 10*6/?L. The reference range was not used to interpret this result as normal/abnormal. HGB (test code = 718-7) 6.9 g/dL 12.2-16.4 L HCT (test code = 4544-3) 24.7 % 38.4-49.3 L MCV (test code = 787-2) 58.3 fL 81.7-95.6 L MCH (test code = 785-6) 16.3 pg 26.1-32.7 L MCHC (test code = 786-4) 27.9 g/dL 31.2-35 L RDW-SD (test code = 95980-4) 49.7 fL 38.5-51.6 RDW-CV (test code = 788-0) 26.2 % 12.1-15.4 H PLT (test code = 777-3) See_Comment [Automated dINKa [employer]] The system which generated this result transmitted reference range: 150 - 328 10*3/?L. The reference range was not used to interpret this result as normal/abnormal. MPV (test code = 31789-6) Not Measured IPF % (test code = 2947339665) 4.6 % 1.2-10.7 Platelet count measured by fluorescence method. NRBC/100 WBC (test code = 6879018875) See_Comment [Automated me ssage] The system which generated this result transmitted reference range: 0.0 - 10.0 /100 WBCs. The reference range was not used to interpret this result as normal/abnormal. NRBC x10^3 (test code = 4071528950) See_Comment [Automated messa ge] The system which generated this result transmitted reference range: 10*3/?L. The reference range was not used to interpret this result as normal/abnormal. GRAN MAT (NEUT) % (test code = 770-8) 56.2 % IMM GRAN % (test code = 3663095847) 0.40 % LYMPH % (test code = 736-9) 35.1 % MONO % (test code = 5905-5) 7.1 % EOS % (test code = 713-8) 0.7 % BASO % (test code = 706-2) 0.5 % GRAN MAT x10^3(ANC) (test code = 8179491485) 3.15 10*3/uL 1.99-6.95 IMM GRAN x10^3 (test code = 2703546750) 0-0.06 LYMPH x10^3 (test code = 731-0) 1.97 10*3/uL 1.09-3.23 MONO x10^3 (test code = 742-7) 0.40 10*3/uL 0.36-1.02 EOS x10^3 (test code = 711-2) 0.04 10*3/uL 0.06-0.53 L BASO x10^3 (test code = 704-7) 0.03 10*3/uL 0.01-0.09 Lab Interpretation (test code = 25908-1) Abnormal [facility] with Etvkaskknsni7932-09-79 19:53:23* Test Item Value Reference Range Interpretation Comme nts WBC (test code = 6690-2) See_Comment [Automated messa ge] The system which generated this result transmitted reference range: 4.20 - 10.70 10*3/?L. The reference range was not used to interpret this result as normal/abnormal. RBC (test code = 789-8) See_Comment L [Automated messa ge] The system which generated this result transmitted reference range: 4.26 - 5.52 10*6/?L. The reference range was not used to interpret this result as normal/abnormal. HGB (test code = 718-7) 6.9 g/dL 12.2-16.4 L HCT (test code = 4544-3) 24.7 % 38.4-49.3 L MCV (test code = 787-2) 58.3 fL 81.7-95.6 L MCH (test code = 785-6) 16.3 pg 26.1-32.7 L MCHC (test code = 786-4) 27.9 g/dL 31.2-35 L RDW-SD (test code = 39151-5) 49.7 fL 38.5-51.6 RDW-CV (test code = 788-0) 26.2 % 12.1-15.4 H PLT (test code = 777-3) See_Comment [Automated dINKa ge] The system which generated this result transmitted reference range: 150 - 328 10*3/?L. The reference range was not used to interpret this result as normal/abnormal. MPV (test code = 59202-4) Not Measured IPF % (test code = 7808073179) 4.6 % 1.2-10.7 Platelet count measured by fluorescence method. NRBC/100 WBC (test code = 7682477494) See_Comment [Automated [employer] ssage] The system which generated this result transmitted reference range: 0.0 - 10.0 /100 WBCs. The reference range was not used to interpret this result as normal/abnormal. NRBC x10^3 (test code = 2851748781) See_Comment [Automated dINKa ge] The system which generated this result transmitted reference range: 10*3/?L. The reference range was not used to interpret this result as normal/abnormal. GRAN MAT (NEUT) % (test code = 770-8) 56.2 % IMM GRAN % (test code = 6164559872) 0.40 % LYMPH % (test code = 736-9) 35.1 % MONO % (test code = 5905-5) 7.1 % EOS % (test code = 713-8) 0.7 % BASO % (test code = 706-2) 0.5 % GRAN MAT x10^3(ANC) (test code = 5064560821) 3.15 10*3/uL 1.99-6.95 IMM GRAN x10^3 (test code = 6134149998)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
[2024-06-27] MEDS ORDERED: HYDROCODONE/APAP 10/325 TAB ONE (14:19)
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
[2024-06-27 16:41] VITALS: BP 141/98; TEMP 98; O2SAT 100
== END 2024-06-27 14:37 | disposition home or self-care (01) ==
LOC: ER 14:02
DX: Z76.0 Encounter for issue of repeat prescription (principal)
CPT/HCPCS: 99283

== ENCOUNTER 2024-07-10 01:31 | Emergency (ER) | payer SELFPAY ==
--- OUTSIDE RECORDS SUMMARY | 2024-07-10 01:36 | XMS REPORT | Continuity of Care Document ---
Author Name Unknown Address [address] [facility] [address] [place] [address] [facility] Address [address] [facility] 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 ELVIN LEVIN Primary Care Physician Unavailab FRED Beltran Attending Clinician Unavailable FRED HOLLINGSWORTH Attending Clinician Unavailable Fred Hollingwsorth DO Attending Clinician [phone] Payton Joy RN Attending Clinician Unavaila ELIU Howard Attending Clinician Unavailable ELIU LEMUS Attending Clinician Unavailable PADMAJA RUTHERFORD Attending Clinician Un available Clary Miles DO Attending Clinician [phone] CLARY MILES Attending Clinician Unavailab Clary King DO Attending Clinician [phone] IHSAN MATA Attending Clinician Unavailable Gavin Choudhury Attending Clinician [phone] Ihsan Mata DO Attending Clinician Hiwot Montiel MD Attending Clinician [phone] YOANDY BRENNAN M.D. Attending Clinician UnavailFRED Ta Admitting Clinician Unavailable ELIU LEMUS Admitting Clinician Unavailable IHSAN MATA Admitting Clinician Unavailable Ihsan Mata DO Admitting Clinician Payers Payer Name Policy Type Policy Number Effective Date Expirati on Date Source Problems Condition Name Condition Details Condition Category Status Onset Date Resolution Date Last Treatment Date Treating Clinician Comments Source Morbid obesity Morbid Obesity Problem Active 06-27 00:00: 00 [facility] Mixed anxiety and depressive disorder Mixed Anxiety and Depressive Disorder Problem Active 06-27 00:00: 00 [facility] Neck pain Neck Pain Problem Active 06-27 00:00: 00 [facility] Backache Backache Problem Active 06-27 00:00: 00 [facility] Epigastric pain Epigastric pain Disease Active 10-02 00:00: 00 [facility] Chronic gastrointe stinal bleeding Chronic gastrointe stinal bleeding Disease Active 10-01 00:00: 00 [facility] Obesity (BMI 30-39.9) Obesity (BMI 30-39.9) Disease Active 10-01 00:00: 00 [facility] Anemia, unspecifie d type Anemia, unspecifie d type Disease Active 10-01 00:00: 00 Overview: Formattin g of this note might be different from the original. Added automatic ally from request for surgery [id number] [facility] Obesity Obesity Disease Active 05-22 00:00: 00 [facility] Esophageal reflux Esophageal reflux Disease Active 05-22 00:00: 00 [facility] Hypothyroi dism Hypothyroi dism Disease Active 05-22 00:00: 00 [facility] Abdominal pain, epigastric Abdominal pain, epigastric Disease Active 05-22 00:00: 00 [facility] Diarrhea Diarrhea Disease Active 05-22 00:00: 00 [facility] Elevated liver enzymes Elevated liver enzymes Disease Active 05-22 00:00: 00 [facility] Rectal bleeding Rectal bleeding Disease Active 05-22 00:00: 00 [facility] Neck pain [facility] pain Problem [facility] Injury to ligament of cervical spine Injury to ligament of cervical spine Problem Active [facility] Allergies, Adverse Reactions, Alerts Allergy Name Allergy Type Status Severity Reaction(s) Onset Date Inactive Date Treating Clinician Comments Source NO KNOWN ALLERGIE S Drug Class Active [facility] Social History Social Habit Start Date Stop Date Quantity Comments Source History of tobacco use Cigarette Smoker [facility] Alcoholic beverage intake 2024-06-30 00:00:00 2024-06-30 00:00:00 Ex-drinker (finding) [facility] Exposure to SARS-CoV-2 (event) 2021-10-06 00:00:00 2021-10-16 13:55:00 Not sure [facility] Alcohol intake 2021-10-16 00:00:00 2021-10-16 00:00:00 Ex-drinker (finding) [facility] History of Social function 2021-10-03 00:00:00 2021-10-03 00:00:00 [facility] Cigarettes smoked current (pack per day) - Reported 2021-10-01 00:00:00 2021-10-01 00:00:00 [facility] Cigarette pack-years 2021-10-01 00:00:00 2021-10-01 00:00:00 [facility] Sex assigned at 1980 00:00:00 1980 00:00:00 [facility] Smoking Status Start Date Stop Date Source Heavy Tobacco Smoker [facility] Smokes tobacco daily 2021-10-01 00:00:00 [facility] Medications Ordered Medication Name Filled Medication Name Start Date Stop Date Current Medication? Ordering Clinician Indication Dosage Frequency Signature (SIG) Comments Components Source HYDROcodone -acetaminop hen (NORCO 5) tablet 2 tablet 06-30 22:30: 00 06-30 22:24 :00 No 2{tbl} 2 tablet, Oral, ONCE, 1 dose, On Wed06/30/24 at 1730, [facility] cyclobenzap rine (FLEXERIL) tablet 10 mg 06-30 22:17: 06-30 22:23 :00 No 10mg 10 mg, Oral, ONCE NOW, 1 dose, On Wed06/30/24 at 1730, [facility] cyclobenzap rine 10 mg tablet 06-30 00:00: 00 Yes [id number] 10mg Take 1 tablet by mouth in the morning and 1 tablet at noon and 1 tablet in the evening. [facility] naproxen 375 mg tablet 06-30 00:00: 00 Yes [id number] 375mg Take 1 tablet by mouth in the morning and 1 tablet in the evening. Take with meals. [facility] Lidocaine (LIDOCARE) 4 % patch 1 Patch 04-10 11:00: 00 04-10 22:59 :00 No 1{patch } 1 Patch, Topical, Administer over 12 Hours, ONCE, 1 dose, On Wed04/10/24 at 0500, Routine [facility] fentanyl PF (SUBLIMAZE (PF)) injection 50 mcg 04-10 10:15: 04-10 10:41 :00 No 50ug 50 mcg, Intramuscu lar, ONCE, 1 dose, On Wed04/10/24 at 0415, Routine [facility] diazePAM (VALIUM) tablet 5 mg 04-10 10:15: 04-10 10:42 :00 No 5mg 5 mg, Oral, ONCE, 1 dose, On Wed04/10/24 at 0415, [facility] ibuprofen (IBU) tablet 600 mg 04-10 10:15: 04-10 10:41 :00 No 600mg 600 mg, Oral, ONCE, 1 dose, On Wed04/10/24 at 0415, [facility] dexamethaso ne sod phos PF injection 10 mg 04-10 10:15: 00 04-10 10:41 :00 No 10mg 10 mg, Oral, ONCE, 1 dose, On Wed04/10/24 at 0415, 1 mL [facility] methocarbam oL 750 mg tablet 04-10 00:00: 00 Yes [id number] 750mg Take 1 tablet by mouth every 6 (six) hours as needed for Pain (scale 1-3). [facility] omeprazole (PRILOSEC) 20 mg capsule 10-07 14:37: 03 Yes 40mg Take 40 mg by mouth daily. [facility] docusate (COLACE) 100 mg capsule 10-07 14:37: 03 Yes 100mg Take 100 mg by mouth 2 (two) times daily. [facility] iron sucrose (VENOFER) 300 mg in NaCl 0.9% (NS) 250 mL infusion 10-03 23:00: 00 10-04 01:06 :33 No 300mg 300 mg, IV Infusion, ONCE, Administer over 2.5 Hours, On Wed10/03/21 at 1800, For 1 dose [facility] dicyclomine (BENTYL) capsule 10 mg 10-03 17:00: 00 10-04 06:15 :53 No 10mg 10 mg, Oral, QID, First dose on Wed10/03/21 at 1200, Until Discontinu ed, Routine [facility] pantoprazol e (PROTONIX) injection 40 mg 10-03 01:00: 00 10-04 06:15 :53 No 40mg 40 mg, Slow IV Push, Q12H, First dose on Wed10/02/21 at 2000, Until Discontinu ed [facility] peg-electro lyte soln (GOLYTELY) 236-22.74-6 .74 -5.86 gram solution 4,000 mL 10-02 21:47: 47 10-04 06:15 :53 No 4000mL 4,000 mL, Oral, PRN - SEE INSTRUCTIO NS, Starting on Wed10/02/21 at 1647, Until 10/04/21 at 0115, Routine, Bowel Prep, colonoscop y [facility] ondansetron (ZOFRAN (PF)) injection 4 mg 10-02 21:47: 47 10-04 06:15 :53 No 4mg 4 mg, Slow IV Push, Q6HPRN, Starting on Beata 10/02/21 at 1647, Until 10/04/21 at 0115, Routine, Nausea and Vomiting (N/V) [facility] bisacodyL (DULCOLAX) tablet 10 mg 10-02 21:47: 47 10-03 07:50 :00 No 10mg 10 mg, Oral, PRE-PROCED URE ONCE, 1 dose, Starting on Beata 10/02/21 at 1647, Until Discontinu ed, Routine, Bowel Prep, Colonoscop y [facility] iron sucrose (VENOFER) 300 mg in NaCl 0.9% (NS) 250 mL infusion 10-02 19:00: 00 10-02 21:27 :00 No 300mg 300 mg, IV Infusion, ONCE, Administer over 2.5 Hours, On Wed10/02/21 at 1400, For 1 dose [facility] simethicone (GAS RELIEF (SIMETHICON E)) chewable tablet 80 mg 10-02 14:15: 00 10-03 19:27 :11 No 80mg 80 mg, Oral, PC+HS, First dose on Wed10/02/21 at 0915, Until Discontinu ed, Routine [facility] acetaminoph en (TYLENOL) tablet 650 mg 10-02 03:01: 00 10-04 06:15 :53 No 650mg 650 mg, Oral, Q6HPRN, Starting on Wed10/01/21 at 2201, Until 10/04/21 at 0115, Routine, Pain (scale 1-3) [facility] pantoprazol e (PROTONIX) 80 mg in NaCl 0.9% (NS) 500 mL infusion 10-02 02:30: 00 10-02 22:31 :38 No 8mg/h 8 mg/hr (50 mL/hr), IV Infusion, CONTINUOUS , Starting on Wed10/01/21 at 2130 [facility] iopamidol (ISOVUE 370-500 mL) injection 100 mL 10-02 02:15: 00 10-02 02:15 :00 No [id number] 100mL 100 mL, Intravenou s, ONCE, 1 dose, On Wed10/01/21 at 2115, Routine [facility] NaCl 0.9% (NS) bolus infusion 1,000 mL 10-02 00:45: 00 10-02 01:46 :00 No 1000mL at 999 mL/hr, 1,000 mL, IV Infusion, ONCE, 1 dose, On Wed10/01/21 at 1945, KO [facility] maalox:diph enhydrAMINE :lidocaine 2 % viscous 1:1:1 (FIRST-MOUT HWASH BLM) oral suspension 15 mL 10-01 23:45: 00 10-02 00:24 :00 No 15mL 15 mL, Oral, ONCE, 1 dose, On Wed10/01/21 at 1845, Routine [facility] No known medications 10-01 22:52: 11 No No known medication s [facility] HYDROcodone -Acetaminop hen 5-325 MG Oral Tablet HYDROcodone -Acetaminop hen 5-325 MG Oral Tablet 08-29 00:00: 00 Yes YOANDY BRENNAN M.D. 1 TAKE 1 TABLET EVERY 6 HOURS NEEDED FOR PAIN. [facility] HYDROcodone -Acetaminop hen 5-325 MG Oral Tablet HYDROcodone -Acetaminop hen 5-325 MG Oral Tablet 08-22 00:00: 00 Yes YOANDY BRENNAN M.D. 1 TAKE 1 TABLET EVERY 6 HOURS NEEDED FOR PAIN. [facility] Celebrex 200 mg capsule Take 1 capsule every day by oral route. Celebrex 200 mg capsule Take 1 capsule every day by oral route. No 1capsul e(s) Q1D Celebrex 200 mg capsule Take 1 capsule every day by oral route. [facility] hydrocodone 10 mg-acetamin ophen 325 mg tablet Take 1 tablet every 4 hours by oral route. hydrocodone 10 mg-acetamin ophen 325 mg tablet Take 1 tablet every 4 hours by oral route. No 1 Q4H hydrocodon e 10 mg-acetami nophen 325 mg tablet Take 1 tablet every 4 hours by oral route. [facility] Vital Signs Vital Name Observation Time Observation Value Comments S shabbir Systolic blood pressure 2024-07-01 00:00:00 132 mm[Hg] [facility] Diastolic blood pressure 2024-07-01 00:00:00 58 mm[Hg] [facility] Heart rate 2024-07-01 00:00:00 51 /min [facility] Body temperature 2024-07-01 00:00:00 37 Esme [facility] Respiratory rate 2024-07-01 00:00:00 15 /min [facility] Oxygen saturation in Arterial blood by Pulse oximetry 2024-07-01 00:00:00 100 /min [facility] Body height 2024-06-30 21:31:00 182.9 cm [facility] Body weight 2024-06-30 21:31:00 116.121 kg [facility] BMI 2024-06-30 21:31:00 34.72 kg/m2 [facility] Body Weight 2024-06-27 00:00:00 256 [lb_av] [facility] Height 2024-06-27 00:00:00 72 [in_i] [facility] BMI (Body Mass Index) 2024-06-27 00:00:00 34.7 kg/m2 [facility] BP Systolic 2024-06-27 00:00:00 120 mm[Hg] [facility] BP Diastolic 2024-06-27 00:00:00 84 mm[Hg] [facility] Systolic blood pressure 2024-04-10 11:04:32 133 mm[Hg] [facility] Diastolic blood pressure 2024-04-10 11:04:32 76 mm[Hg] [facility] Heart rate 2024-04-10 11:04:32 64 /min [facility] Body temperature 2024-04-10 11:04:32 36.61 Esme [facility] Respiratory rate 2024-04-10 11:04:32 15 /min [facility] Oxygen saturation in Arterial blood by Pulse oximetry 2024-04-10 11:04:32 98 /min [facility] Body height 2024-04-10 09:57:00 182.9 cm [facility] Body weight 2024-04-10 09:57:00 108.863 kg [facility] BMI 2024-04-10 09:57:00 32.55 kg/m2 [facility] Systolic blood pressure 2021-10-16 21:00:00 134 mm[Hg] [facility] Diastolic blood pressure 2021-10-16 21:00:00 73 mm[Hg] [facility] Heart rate 2021-10-16 21:00:00 66 /min [facility] Respiratory rate 2021-10-16 21:00:00 20 /min [facility] Oxygen saturation in Arterial blood by Pulse oximetry 2021-10-16 21:00:00 97 /min [facility] Body temperature 2021-10-16 18:51:00 37.5 Esme [facility] Body height 2021-10-16 18:51:00 182.9 cm [facility] Body weight 2021-10-16 18:51:00 127.914 kg [facility] BMI 2021-10-16 18:51:00 38.25 kg/m2 [facility] Systolic blood pressure 2021-10-03 21:32:00 151 mm[Hg] [facility] Diastolic blood pressure 2021-10-03 21:32:00 76 mm[Hg] [facility] Heart rate 2021-10-03 21:32:00 58 /min [facility] Body temperature 2021-10-03 21:32:00 36.78 Esme [facility] Respiratory rate 2021-10-03 21:32:00 18 /min [facility] Oxygen saturation in Arterial blood by Pulse oximetry 2021-10-03 21:32:00 99 /min [facility] Body height 2021-10-02 04:20:00 182.9 cm [facility] Body weight 2021-10-02 04:20:00 127.914 kg [facility] BMI 2021-10-02 04:20:00 38.25 kg/m2 [facility] Systolic blood pressure 2021-10-03 16:59:00 142 mm[Hg] [facility] Diastolic blood pressure 2021-10-03 16:59:00 79 mm[Hg] [facility] Heart rate 2021-10-03 16:59:00 63 /min [facility] Respiratory rate 2021-10-03 16:59:00 19 /min [facility] Oxygen saturation in Arterial blood by Pulse oximetry 2021-10-03 16:59:00 98 /min [facility] Body temperature 2021-10-03 16:25:00 36.56 Esme [facility] Body height 2021-10-02 04:20:00 182.9 cm [facility] Body weight 2021-10-02 04:20:00 127.914 kg [facility] BMI 2021-10-02 04:20:00 38.25 kg/m2 [facility] Procedures Procedure Date / Time Performed Performing Clinician Source XR LUMBAR SPINE 2 2024-06-30 22:59:00 Darrick Fred [facility] XR SPINE THORACIC 2 2024-06-30 22:59:00 Darrick Fred [facility] XR CERVICAL SPINE 3 2024-06-30 22:59:00 Darrick Fred [facility] X-RAY CERVICAL SPINE 2 OR 3 VIEW 2024-06 00:00:00 [facility] XR LUMBAR SPINE 3 2024-04-10 10:37:14 Clary Miles [facility] XR SPINE THORACIC 2 2024-04-10 10:37:14 Clary Miles [facility] XR CERVICAL SPINE 3 2024-04-10 10:37:14 Clary Miles [facility] HB ABO GROUPING 2021-10-16 20:00:00 Clary Miles [facility] COMP. METABOLIC PANEL ([id number]) 2021-10-16 19:57:00 Clary Miles [facility] CBC WITH DIFF 2021-10-16 19:57:00 Clary Miles [facility] COVID-19 (ID NOW RAPID TESTING) 19:57:00 Clary Miles [facility] NOTICE OF PRIVACY PRACTICES 2021-10-16 18:33:28 Doctor Unassigned, [place] [facility] CONSENT/REFUSAL FOR DIAGNOSI S AND TREATMENT 2021-10-16 18:33:00 Doctor Unassigned, [place] [facility] COLONOSCOPY (ENDO) 2021-10-03 19:18:05 Elvin Levin [facility] COLONOSCOPY (ENDO) 2021-10-03 19:18:05 Elvin Levin [facility] EGD (ENDO) 2021-10-03 19:13:30 Elvin Levin [facility] EGD (ENDO) 2021-10-03 19:13:30 Elvin Levin [facility] ESOPHAGOGASTRODUODENOSCOPY 2021-10-03 19:11:00 Dinesh Hiwot [facility] COLONOSCOPY 2021-10-03 19:11:00 Dinesh Hiwot [facility] CBC WITHOUT DIFF 2021-10-03 09:37:00 Humberto Oropeza [facility] EXTRA TUBE LT. GREEN 2021-10-03 09:37:00 Esperanza Ihsan [facility] CBC WITHOUT DIFF 2021-10-03 09:37:00 Humberto Oropeza [facility] EXTRA TUBE LT. GREEN 2021-10-03 09:37:00 Ihsan Mata [facility] CBC WITH DIFF 2021-10-03 02:15:00 Nash Schultz [facility] CBC WITH DIFF 2021-10-03 02:15:00 [facility] CBC WITH DIFF 2021-10-02 18:56:00 Antoine Nash [facility] CBC WITH DIFF 2021-10-02 18:56:00 Antoine Nash [facility] PREPARE PACKED RBC 2021-10-02 14:12:57 Humberto Oropeza [facility] PREPARE PACKED RBC 2021-10-02 14:12:57 Humberto Oropeza [facility] LACTATE DEHYDROGENASE 2021-10-02 13:33:00 Humberto Oropeaz [facility] LACTATE DEHYDROGENASE 2021-10-02 13:33:00 Humberto Oropeza [facility] PHOSPHORUS 2021-10-02 11:13:00 Nash Schultz [facility] MAGNESIUM 2021-10-02 11:13:00 [facility] BASIC METABOLIC PANEL (NA, K , CL, CO2, GLUCOSE, BUN, CREATININE, CA) 2021-10-02 11:13:00 [facility] DIFF CONSULT INTERPRETATION 2021-10-02 11:13:00 Humberto Oropeza [facility] CBC WITH DIFF 2021-10-02 11:13:00 [facility] RETICULOCYTES AUTOMATED 2021-10-02 11:13:00 Humberto Oropeza [facility] PHOSPHORUS 2021-10-02 11:13:00 Antoine Nash [facility] MAGNESIUM 2021-10-02 11:13:00 [facility] BASIC METABOLIC PANEL (NA, K , CL, CO2, GLUCOSE, BUN, CREATININE, CA) 2021-10-02 11:13:00 [facility] DIFF CONSULT INTERPRETATION 2021-10-02 11:13:00 Humberto Oropeza [facility] CBC WITH DIFF 2021-10-02 11:13:00 [facility] RETICULOCYTES AUTOMATED 2021-10-02 11:13:00 Humberto Oropeza [facility] PREPARE PACKED RBC 2021-10-02 07:19:48 Gavin Espinal [facility] PREPARE PACKED RBC 2021-10-02 07:19:48 Gavin Espinal [facility] ABORH CONFIRMATION (LAB ONLY) 2021-10-02 03:10:00 Gavin Espinal [facility] ABORH CONFIRMATION (LAB ONLY) 2021-10-02 03:10:00 Gavin Espinal [facility] PROTHROMBIN TIME / INR 2021-10-02 01:39:00 Gavin Espinal [facility] PROTHROMBIN TIME / INR 2021-10-02 01:39:00 Gavin Espinal [facility] HB ABO GROUPING 2021-10-02 01:30:00 Gavin Espinal [facility] HB ABO GROUPING 2021-10-02 01:30:00 Gavin Espinal [facility] URINALYSIS 2021-10-02 01:09:00 Gavin Espinal [facility] EXTRA TUBE URINE CULTURE 2021-10-02 01:09:00 Gavin Espinal [facility] URINALYSIS 2021-10-02 01:09:00 Gavin Espinal [facility] EXTRA TUBE URINE CULTURE 2021-10-02 01:09:00 Gavin Espinal [facility] CT ABDOMEN PELVIS W CONTRAST 2021-10-02 01:02:00 Gavin Espinal [facility] CT ABDOMEN PELVIS W CONTRAST 2021-10-02 01:02:00 Gavin Espinal [facility] COVID-19 (ID NOW RAPID TESTING) 00:00:00 Gavin Espinal [facility] LAB ONLY COVID INTERPRETATION 2021-10-02 00:00:00 Gavin Espinal [facility] LIPASE 2021-10-02 00:00:00 Gavin Espinal [facility] FERRITIN SERUM 2021-10-02 00:00:00 Nash Schultz [facility] HAPTOGLOBIN, SERUM 2021-10-02 00:00:00 Humberto Oropeza [facility] TROPONIN I 2021-10-02 00:00:00 Gavin Espinal [facility] COMP. METABOLIC PANEL ([id number]) 2021-10-02 00:00:00 Gavin Espinal [facility] IRON PANEL 2021-10-02 00:00:00 Nash Schultz [facility] CBC WITH DIFF 2021-10-02 00:00:00 Gavin Espinal [facility] COVID-19 (ID NOW RAPID TESTING) 00:00:00 Gavin Espinal [facility] LAB ONLY COVID INTERPRETATION 2021-10-02 00:00:00 Gavin Espinal [facility] LIPASE 2021-10-02 00:00:00 Gavin Espinal [facility] FERRITIN SERUM 2021-10-02 00:00:00 Nash Schultz [facility] HAPTOGLOBIN, SERUM 2021-10-02 00:00:00 Humberto Oropeza [facility] TROPONIN I 2021-10-02 00:00:00 Gavin Espinal [facility] COMP. METABOLIC PANEL ([id number]) 2021-10-02 00:00:00 Gavin Espinal [facility] IRON PANEL 2021-10-02 00:00:00 Nash Schultz [facility] CBC WITH DIFF 2021-10-02 00:00:00 Gavin Espinal [facility] HB ECG ROUTINE & RHYTHM STRIP 2021-10-01 23:50:08 Gavin Espinal [facility] CONSENT/REFUSAL FOR DIAGNOSI S AND TREATMENT 2021-10-01 23:11:54 Doctor Unassigned, [place] [facility] CONSENT/REFUSAL FOR DIAGNOSI S AND TREATMENT 2021-10-01 23:11:54 Doctor Unassigned, [place] [facility] Post Op Promis 29 Survey 2019-09-15 00:00:00 [facility] Procedure on Cervic al Spine [facility] Laparoscopic Cholecystectomy [facility] Appendectomy [facility] Encounters Start Date/Time End Date/Time Encounter Type Admission Type Attending Clinicians Care Facility Care Department Encounter ID Source 2024-06-30 16:32:00 2024-06-30 19:39:00 Emergency FRED GA TIMOTHY [facility] ERT [id number] [facility] 2024-06-30 16:32:00 2024-06-30 19:39:00 Emergency Fred Hollingsworth AT [facility] [id number] [facility] 2024-06-30 00:00:00 2024-06-30 13:18:15 Nurse Triage Payton Joy Teresa D [facility] [id number] [facility] 2024-06-27 00:00:00 2024-06-27 00:00:00 Naman Nielsen MD: [address] [place] [address] , [address], [place] [address] , Ph. [facility] - [place] - _HOU_Beel Otilia [id number] [facility] 2024-05-02 21:51:00 2024-05-03 00:31:00 Emergency X ELIU LEMUS WAKILI [facility] ERT [id number] [facility] 2024-04-26 01:47:00 2024-04-26 01:49:00 Emergency Emergency [facility] General Medicine [id number] 2024-04-10 04:04:00 2024-04-10 05:30:00 Emergency Clary Miles [facility] 1.840.114 350.1.13.10 4.2.7.2.686 [id number] [facility] 2021-10-16 13:56:00 2021-10-16 16:40:00 Emergency X CLARY MILES [facility] ERT [id number] [facility] 2021-10-16 13:56:00 2021-10-16 16:40:00 Emergency Clary Miles [facility] 1.2840.114 350.1.13.10 4.2.7.2.686 [id number] [id number] [facility] 2021-10-01 18:12:00 2021-10-03 21:20:00 Inpatient X IHSAN MATA [facility] ALANNA [id number] [facility] 2021-10-01 18:12:00 2021-10-03 21:20:00 Hospital Encounter Gavin Espinal Patrick JENNIE [facility] 1..840.114 350.1.13.10 4.2.7.2.686 [id number] [facility] 2021-10-03 11:43:00 2021-10-03 12:29:00 Surgery Hiwot Montiel [facility] 1.2.840.114 350.1.13.10 4.2.7.2.686 [id number] [id number] [facility] 2019-08-30 14:00:00 2019-08-30 14:00:00 Appointmen kane; YOANDY BRENNAN M.D. PRASARN, MARK, M.D. UTP UTP [id number] ID Physici ans Results Test Description Test Time Test Comments Results Resul t Comments Source XR Cervical spine 3 vw 9 23:44:10 Exam: XR CERVICAL SPINE 3 VW, XR THORACIC SPINE 2 VW, XR LUMBAR SPINE 2 VW,06/30/2024 5:30 PM. Ordering Physician: FRED HOLLINGSWORTH. History: fall injury . Technique: Frontal and lateral radiographs of the C-spine, T-spine andL-spine. Open-mouth view of the cervical spine as well. Comparison: 04/10/2024. Findings: Cervical spine:Preserved vertebral body heights. No acute fracture.Postsurgica l changes of C5-C6 anteriorly and posteriorly with intacthardware, as well as C5-6 replacementMild disc height loss of C6/C7 with anterior endplate osteophyte formation.Otherwise nonsurgerized disc heights are maintained.No traumatic malalignment. Thoracic spine:Preserved vertebral body heights. No acute fracture.Preserved disc heights.No traumatic malalignment. Lumbar spine:Preserved vertebral body heights. No acute fracture.Mild disc height loss of L4-L5 and L5-S1.Otherwise preserved disc heights.No traumatic malalignment. Cholecystectomy clips are seen. [facility] XR Thoracic spine 2 vw 9 23:44:10 Exam: XR CERVICAL SPINE 3 VW, XR THORACIC SPINE 2 VW, XR LUMBAR SPINE 2 VW,06/30/2024 5:30 PM. Ordering Physician: FRED HOLLINGSWORTH. History: fall injury . Technique: Frontal and lateral radiographs of the C-spine, T-spine andL-spine. Open-mouth view of the cervical spine as well. Comparison: 04/10/2024. Findings: Cervical spine:Preserved vertebral body heights. No acute fracture.Postsurgica l changes of C5-C6 anteriorly and posteriorly with intacthardware, as well as C5-6 replacementMild disc height loss of C6/C7 with anterior endplate osteophyte formation.Otherwise nonsurgerized disc heights are maintained.No traumatic malalignment. Thoracic spine:Preserved vertebral body heights. No acute fracture.Preserved disc heights.No traumatic malalignment. Lumbar spine:Preserved vertebral body heights. No acute fracture.Mild disc height loss of L4-L5 and L5-S1.Otherwise preserved disc heights.No traumatic malalignment. Cholecystectomy clips are seen. [facility] XR Lumbar spine 2 vw 9 23:44:10 Exam: XR CERVICAL SPINE 3 VW, XR THORACIC SPINE 2 VW, XR LUMBAR SPINE 2 VW,06/30/2024 5:30 PM. Ordering Physician: FRED HOLLINGSWORTH. History: fall injury . Technique: Frontal and lateral radiographs of the C-spine, T-spine andL-spine. Open-mouth view of the cervical spine as well. Comparison: 04/10/2024. Findings: Cervical spine:Preserved vertebral body heights. No acute fracture.Postsurgica l changes of C5-C6 anteriorly and posteriorly with intacthardware, as well as C5-6 replacementMild disc height loss of C6/C7 with anterior endplate osteophyte formation.Otherwise nonsurgerized disc heights are maintained.No traumatic malalignment. Thoracic spine:Preserved vertebral body heights. No acute fracture.Preserved disc heights.No traumatic malalignment. Lumbar spine:Preserved vertebral body heights. No acute fracture.Mild disc height loss of L4-L5 and L5-S1.Otherwise preserved disc heights.No traumatic malalignment. Cholecystectomy clips are seen. [facility] XR Lumbar spine 3 vw 2024-03-25 7 11:09:23 CLINICAL HISTORY: Back pain ORDERING PHYSICIAN: CLARY MILES TECHNIQUE: 3 views lumbar spine. COMPARISON: None. FINDINGS: No fracture or dislocation. ?Surrounding soft tissues are unremarkable. Joint spaces are preserved. [facility] XR Thoracic spine 2 vw 2024-03-25 7 11:08:49 ORDERING PHYSICIAN: CLARY MILES CLINICAL HISTORY: Back pain, injury TECHNIQUE: 2 views thoracic spine obtained. COMPARISON:None. FINDINGS: No fracture or dislocation. ?Surrounding soft tissues are unremarkable. [facility] XR Cervical spine 3 vw 2024-03-25 7 11:08:07 CLINICAL HISTORY: Pain ORDERING PHYSICIAN: CLARY MILES TECHNIQUE: 3 views cervical spine. COMPARISON: None. FINDINGS: No fracture or dislocation. ?Surrounding soft tissues are unremarkable.Patient is status post anterior and posterior fusion of C5 and C6. Hardwareis well-positioned and in anatomic alignment. Degenerative disc disease isseen at C4/5, C5/6, C6/7. [facility] [id number] 20:48:46* Test Item Value Reference Range Interpretation Comme nts ABO & RH (test code = 20) B Positive Performed at [facility] Laboratory Services -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
[2024-07-10] MEDS ORDERED: HYDROCODONE/APAP 10/325 TAB ONE (03:02)
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
[2024-07-10 03:45] VITALS: BP 153/85; TEMP 97.4; O2SAT 100
== END 2024-07-10 03:37 | disposition home or self-care (01) ==
LOC: ER 01:31
DX: M54.9 Dorsalgia, unspecified (principal)
CPT/HCPCS: 99283